=== PATIENT | male | born 1975 | race Caucasian/White ===

== ENCOUNTER 2018-07-16 12:23 | Outpatient (CLI) | payer OTHER ==
--- NOTE | 2018-07-16 14:45 | DI ---
EXAM: PA and lateral views of the chest HISTORY: Chronic bronchitis COMPARISON: Chest x-ray 01/10/2008 FINDINGS: The cardiomediastinal silhouette is normal. There is no pneumothorax or pleural effusion. There is no consolidation, nodule or mass. There is a calcified granuloma in the right lower lobe. 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 IMPRESSION: No acute cardiopulmonary process
== END 2018-07-16 12:24 | disposition home or self-care (01) ==
LOC: RAD 12:23
PROVIDERS: ATTEND Family Medicine
DX: J41.1 Mucopurulent chronic bronchitis (principal); G62.9 Polyneuropathy, unspecified
CPT/HCPCS: 36415; 80053; 82175; 82607; 83655; 83825; 85025; 86592